=== PATIENT | female | born 1950 | race Asian ===

== ENCOUNTER 2018-09-26 08:58 | Inpatient (IN) | payer OTHER, MEDICAID ==
[~2018-09-26] VITALS: Ht 147.3 cm; Wt 64.0 kg
[2018-09-26 09:13] VITALS: BP_SYST 162
[2018-09-26] MEDS ORDERED: INSULIN REGULAR, HUMAN 10 UNITS/0.1 ML INJ IVP ONE (10:30)
[2018-09-26 11:08] LABS: BILIRUBIN,URINE NEGATIVE (NEGATIVE); CLARITY/URINE CLEAR (CLEAR); COLOR,URINE YELLOW (YELLOW); GLUCOSE,URINE 2+ (NEGATIVE); KETONES,URINE TRACE (NEGATIVE); LEUKOCYTE ESTERASE ,URINE NEGATIVE (NEGATIVE); NITRITE, URINE NEGATIVE (NEGATIVE); PROTEIN URINE 2+ (NEGATIVE); UROBILINOGEN,URINE 0.2 (0.2-1.0)
[2018-09-26 11:09] LABS: BLOOD, URINE TRACE (NEGATIVE)
[2018-09-26 11:09] LABS: BASOPHILS % (AUTO) 0.1 % (0.0-2.0); HEMATOCRIT 40.9 % (36-48); HEMOGLOBIN 13.1 g/dL (12.0-16.0); LYMPHOCYTES # (AUTO) 2.4 K/uL (1.0-5.5); LYMPHOCYTES % (AUTO) 10.6 % (20.5-51.5); MEAN CORPUSCULAR HEMOGLOBIN 29 pg (27-31); MEAN CORPUSCULAR HGB CONC 32 % (32-36); MEAN CORPUSCULAR VOLUME 89 fL (79.0-98.0); MONOCYTES % (AUTO) 4.4 % (1.7-9.3); NEUTROPHILS # (AUTO) 19.1 K/uL (1.8-7.7); NEUTROPHILS % (AUTO) 84.9 % (40.0-70.0); PLATELET COUNT (AUTO) 283 K/uL (130-430); RED BLOOD CELL COUNT(AUTO) 4.59 MIL/uL (4.2-6.2); RED CELL DISTRIBUTION WIDTH 14.3 % (9.0-15.0); WHITE BLOOD COUNT (AUTO) 22.5 K/uL (4.8-10.8)
[2018-09-26 11:11] LABS: CALCIUM 9.2 mg/dL (8.4-11.0); CREATININE 1.11 mg/dL (0.55-1.30); POTASSIUM 3.6 mmol/L (3.5-5.1)
[2018-09-26] MEDS ORDERED: NACL 0.9% 1,000 ML IV ONE ×2 (11:15→14:00)
[2018-09-26 11:17] LABS: ALBUMIN 3.5 g/dL (3.4-4.8); TOTAL BILIRUBIN 0.5 mg/dL (0.0-1.0)
[2018-09-26 11:30] LABS: BACTERIA,URINE FEW /HPF (None Seen); MUCUS,URINE 1+ /LPF (None Seen); WBC,URINE 0-3 /HPF (0-3)
[2018-09-26] MEDS ORDERED: MORPHINE 4 MG/ML INJ. SYRINGE IVP ONE (12:15)
[2018-09-26] MEDS ORDERED: GLUXR500 PO (12:30)
[2018-09-26] MEDS ORDERED: NOR10 PO (12:30)
[2018-09-26] MEDS ORDERED: GLIP5TAB26 PO (12:30)
[2018-09-26] MEDS ORDERED: SIMV10TA2 PO (12:30)
[2018-09-26] MEDS ORDERED: VANCOMYCIN HCL 1,000 MG in NS 250 ML IV ONE (13:15)
[2018-09-26] MEDS ORDERED: VANCOMYCIN HCL 1000 MG/VIAL IV ONE (13:29)
[2018-09-26 14:00] VITALS: BP_SYST 143
[2018-09-26] MEDS ORDERED: DEXTROSE 50% JECT 50 ML DISP.SYRIN IVP PRN (14:00)
[2018-09-26] MEDS: NACL 0.9% 1,000 ML IV SCH ×2 (14:00→21:22)
[2018-09-26] MEDS ORDERED: OSELTAMIVIR PHOSPHATE 75 MG CAPSULE PO ONE (14:00)
[2018-09-26] MEDS ORDERED: CHOLECALCIFEROL (VITAMIN D3) 2,000 UNIT TABLET PO ONE (14:15)
[2018-09-26] MEDS: ACETAMINOPHEN 325 MG TABLET PO PRN (15:02)
[2018-09-26 16:13] VITALS: BP_SYST 148
[2018-09-26] MEDS: INSULIN REGULAR, HUMAN 100 UNITS/ML, 10 ML VIAL (humuLIN R) SUBCUT PRN ×2 (17:18→21:20)
[2018-09-26 21:00] VITALS: BP_SYST 143
[2018-09-26] MEDS: glipiZIDE XL 5 MG TAB ( GLUCOTROL XL) PO SCH (21:05)
[2018-09-26] MEDS: MULTIVITAMINS TAB 1 TABLET PO SCH (21:05)
[2018-09-26] MEDS: OSELTAMIVIR PHOSPHATE 75 MG CAPSULE PO SCH (21:07)
[2018-09-27 00:05] VITALS: BP_SYST 132
[2018-09-27] MEDS: ONDANSETRON HCL 4 MG/2 ML VIAL IVP PRN ×2 (02:27→09:06)
[2018-09-27] MEDS: ACETAMINOPHEN 325 MG TABLET PO PRN ×2 (02:33→09:07)
[2018-09-27] MEDS: NACL 0.9% 1,000 ML IV SCH ×3 (02:35→17:45)
[2018-09-27 06:33] LABS: BASOPHILS # (AUTO) 0.1 K/uL (0.0-0.2); BASOPHILS % (AUTO) 0.3 % (0.0-2.0); EOSINOPHILS % (AUTO) 0.2 % (0.0-4.0); HEMATOCRIT 37.6 % (36-48); HEMOGLOBIN 12.2 g/dL (12.0-16.0); LYMPHOCYTES # (AUTO) 2.9 K/uL (1.0-5.5); MEAN CORPUSCULAR HEMOGLOBIN 29 pg (27-31); MEAN CORPUSCULAR HGB CONC 32 % (32-36); MEAN CORPUSCULAR VOLUME 90 fL (79.0-98.0); MONOCYTES % (AUTO) 4.8 % (1.7-9.3); NEUTROPHILS # (AUTO) 16.5 K/uL (1.8-7.7); PLATELET COUNT (AUTO) 259 K/uL (130-430); WHITE BLOOD COUNT (AUTO) 20.4 K/uL (4.8-10.8)
[2018-09-27 06:51] LABS: CALCIUM 8.4 mg/dL (8.4-11.0); CREATININE 0.82 mg/dL (0.55-1.30); POTASSIUM 3.5 mmol/L (3.5-5.1)
[2018-09-27] MEDS: INSULIN REGULAR, HUMAN 100 UNITS/ML, 10 ML VIAL (humuLIN R) SUBCUT PRN ×4 (06:55→21:37)
[2018-09-27 07:19] LABS: ALBUMIN 2.7 g/dL (3.4-4.8); THYROID STIMULATING HORMONE 10.79 uIu/mL (0.36-3.74); TOTAL BILIRUBIN 0.3 mg/dL (0.0-1.0)
[2018-09-27 07:50] VITALS: BP_SYST 137
[2018-09-27] MEDS: OSELTAMIVIR PHOSPHATE 75 MG CAPSULE PO SCH ×2 (09:06→21:25)
[2018-09-27] MEDS: glipiZIDE XL 5 MG TAB ( GLUCOTROL XL) PO SCH ×2 (09:06→21:26)
[2018-09-27] MEDS: amLODIPine BESYLATE 10 MG TABLET PO SCH (09:07)
[2018-09-27] MEDS: MULTIVITAMINS TAB 1 TABLET PO SCH ×2 (09:08→21:25)
[2018-09-27] MEDS: SIMVASTATIN 10 MG TABLET PO SCH (09:08)
[2018-09-27] MEDS: CHOLECALCIFEROL (VITAMIN D3) 2,000 UNIT TABLET PO SCH (09:08)
[2018-09-27 10:34] LABS: NEUTROPHILS % (AUTO) 80.7 % (40.0-70.0)
[2018-09-27] MEDS: metroNIDAZOLE 250 MG TABLET PO SCH ×3 (12:14→21:26)
[2018-09-27 12:37] VITALS: BP_SYST 111
[2018-09-27 16:52] VITALS: BP_SYST 117
[2018-09-27] MEDS: PANTOPRAZOLE SODIUM 40 MG/VIAL (PROTONIX) IVP SCH (19:30)
[2018-09-27 20:02] VITALS: BP_SYST 138
[2018-09-27] MEDS ORDERED: PANTOPRAZOLE SODIUM 40 MG/VIAL (PROTONIX) IVP SCH (21:00)
[2018-09-27] MEDS: D5LR 1,000 ML IV SCH (21:24)
[2018-09-27] MEDS: DOXYCYCLINE HYCLATE 100 MG CAPSULE PO SCH (21:26)
[2018-09-28] VITALS (7 sets, daily range): BP systolic 114–141
[2018-09-28] MEDS: D5LR 1,000 ML IV SCH ×3 (06:06→23:37)
[2018-09-28] MEDS: INSULIN REGULAR, HUMAN 100 UNITS/ML, 10 ML VIAL (humuLIN R) SUBCUT PRN ×3 (06:11→20:21)
[2018-09-28 06:24] LABS: BASOPHILS # (AUTO) 0.1 K/uL (0.0-0.2); BASOPHILS % (AUTO) 0.4 % (0.0-2.0); EOSINOPHILS # (AUTO) 0.2 K/uL (0.0-0.4); EOSINOPHILS % (AUTO) 1.4 % (0.0-4.0); HEMATOCRIT 35.5 % (36-48); HEMOGLOBIN 11.6 g/dL (12.0-16.0); LYMPHOCYTES # (AUTO) 4.3 K/uL (1.0-5.5); MEAN CORPUSCULAR HEMOGLOBIN 29 pg (27-31); MEAN CORPUSCULAR HGB CONC 33 % (32-36); MONOCYTES % (AUTO) 6.7 % (1.7-9.3); NEUTROPHILS # (AUTO) 9.7 K/uL (1.8-7.7); NEUTROPHILS % (AUTO) 63.5 % (40.0-70.0); PLATELET COUNT (AUTO) 274 K/uL (130-430); RED BLOOD CELL COUNT(AUTO) 4.01 MIL/uL (4.2-6.2); RED CELL DISTRIBUTION WIDTH 13.7 % (9.0-15.0); WHITE BLOOD COUNT (AUTO) 15.3 K/uL (4.8-10.8)
[2018-09-28 07:05] LABS: MEAN CORPUSCULAR VOLUME 88 fL (79.0-98.0)
[2018-09-28 07:26] LABS: CALCIUM 8.3 mg/dL (8.4-11.0); CREATININE 0.86 mg/dL (0.55-1.30); POTASSIUM 3.3 mmol/L (3.5-5.1)
[2018-09-28] MEDS ORDERED: MIDAZOLAM HCL 5 MG/5 ML VIAL ONE (07:35)
[2018-09-28 07:53] LABS: ALBUMIN 2.5 g/dL (3.4-4.8); THYROID STIMULATING HORMONE 15.61 uIu/mL (0.36-3.74); TOTAL BILIRUBIN 0.3 mg/dL (0.0-1.0)
[2018-09-28] MEDS: MEPERIDINE HCL/PF 100 MG/ML AMP ONE ×2 (07:58→09:27)
[2018-09-28] MEDS: MIDAZOLAM HCL 5 MG/5 ML VIAL ONE ×2 (07:58→09:27)
[2018-09-28] MEDS ORDERED: DIATR MEGLU/DIATRIZ SOD 30 ML SOLUTION PO ONE (08:46)
[2018-09-28] MEDS: SIMVASTATIN 10 MG TABLET PO SCH (09:22)
[2018-09-28] MEDS: LEVOTHYROXINE SODIUM 0.025 MG TABLET PO SCH (09:22)
[2018-09-28] MEDS: DOXYCYCLINE HYCLATE 100 MG CAPSULE PO SCH ×2 (09:22→20:20)
[2018-09-28] MEDS: MULTIVITAMINS TAB 1 TABLET PO SCH ×2 (09:22→20:20)
[2018-09-28] MEDS: glipiZIDE XL 5 MG TAB ( GLUCOTROL XL) PO SCH ×2 (09:22→20:21)
[2018-09-28] MEDS: metroNIDAZOLE 250 MG TABLET PO SCH ×3 (09:22→16:25)
[2018-09-28] MEDS: CHOLECALCIFEROL (VITAMIN D3) 2,000 UNIT TABLET PO SCH (09:22)
[2018-09-28] MEDS: PANTOPRAZOLE SODIUM 40 MG/VIAL (PROTONIX) IVP SCH (09:22)
[2018-09-28] MEDS: OSELTAMIVIR PHOSPHATE 75 MG CAPSULE PO SCH ×2 (09:23→20:20)
[2018-09-28] MEDS: amLODIPine BESYLATE 10 MG TABLET PO SCH (09:23)
[2018-09-28] MEDS ORDERED: POTASSIUM CHLORIDE 20 MEQ TAB.PRT.SR PO ONE (12:15)
[2018-09-28] MEDS ORDERED: IOHEXOL 100 ML IV ONE (13:00)
[2018-09-28] MEDS ORDERED: BISACODYL 5 MG TABLET.DR (DULCOLAX) PO ONE (17:00)
[2018-09-28] MEDS ORDERED: GOLYTELY / COLYTE SOLUTION 4 LITERS PO ONE (18:00)
[2018-09-28] MEDS: POTASSIUM CHLORIDE 20 MEQ TAB.PRT.SR PO SCH (20:20)
[2018-09-28] MEDS: metroNIDAZOLE 250 mg/NS 50 ML IV SCH (21:17)
[2018-09-29] MEDS: LEVOTHYROXINE SODIUM 0.025 MG TABLET PO SCH (04:39)
[2018-09-29] MEDS: metroNIDAZOLE 250 mg/NS 50 ML IV SCH ×3 (05:18→21:39)
[2018-09-29 05:44] LABS: BASOPHILS # (AUTO) 0.1 K/uL (0.0-0.2); BASOPHILS % (AUTO) 0.8 % (0.0-2.0); EOSINOPHILS # (AUTO) 0.4 K/uL (0.0-0.4); EOSINOPHILS % (AUTO) 3.3 % (0.0-4.0); HEMOGLOBIN 10.9 g/dL (12.0-16.0); MONOCYTES # (AUTO) 0.9 K/uL (0.0-1.0)
[2018-09-29] MEDS: INSULIN REGULAR, HUMAN 100 UNITS/ML, 10 ML VIAL (humuLIN R) SUBCUT PRN ×2 (05:56→17:02)
[2018-09-29 06:55] LABS: CALCIUM 8.5 mg/dL (8.4-11.0); CREATININE 0.76 mg/dL (0.55-1.30)
[2018-09-29 07:00] LABS: HEMATOCRIT 33.9 % (36-48); LYMPHOCYTES # (AUTO) 3.9 K/uL (1.0-5.5); LYMPHOCYTES % (AUTO) 30.8 % (20.5-51.5); MEAN CORPUSCULAR HEMOGLOBIN 28 pg (27-31); MEAN CORPUSCULAR HGB CONC 32 % (32-36); MEAN CORPUSCULAR VOLUME 88 fL (79.0-98.0); MONOCYTES % (AUTO) 6.7 % (1.7-9.3); NEUTROPHILS # (AUTO) 7.5 K/uL (1.8-7.7); NEUTROPHILS % (AUTO) 58.4 % (40.0-70.0); PLATELET COUNT (AUTO) 292 K/uL (130-430); RED BLOOD CELL COUNT(AUTO) 3.83 MIL/uL (4.2-6.2); RED CELL DISTRIBUTION WIDTH 13.6 % (9.0-15.0); WHITE BLOOD COUNT (AUTO) 12.8 K/uL (4.8-10.8)
[2018-09-29 07:11] LABS: PROTHROMBIN TIME 10.1 SECS (9.5-12.5)
[2018-09-29 07:45] VITALS: BP_SYST 133
[2018-09-29] MEDS: PANTOPRAZOLE SODIUM 40 MG/VIAL (PROTONIX) IVP SCH (08:55)
[2018-09-29] MEDS: POTASSIUM CHLORIDE 20 MEQ TAB.PRT.SR PO SCH ×2 (08:55→21:30)
[2018-09-29] MEDS: CHOLECALCIFEROL (VITAMIN D3) 2,000 UNIT TABLET PO SCH (09:00)
[2018-09-29] MEDS: DOXYCYCLINE HYCLATE 100 MG CAPSULE PO SCH ×2 (09:00→21:29)
[2018-09-29] MEDS: MULTIVITAMINS TAB 1 TABLET PO SCH ×2 (09:00→21:29)
[2018-09-29] MEDS: SIMVASTATIN 10 MG TABLET PO SCH (09:00)
[2018-09-29] MEDS: amLODIPine BESYLATE 10 MG TABLET PO SCH (09:00)
[2018-09-29] MEDS: glipiZIDE XL 5 MG TAB ( GLUCOTROL XL) PO SCH ×2 (09:00→21:29)
[2018-09-29] MEDS: OSELTAMIVIR PHOSPHATE 75 MG CAPSULE PO SCH ×2 (09:00→21:29)
[2018-09-29] MEDS ORDERED: POTASSIUM CHLORIDE 20 MEQ TAB.PRT.SR PO ONE (10:30)
[2018-09-29] MEDS: MEPERIDINE HCL/PF 100 MG/ML AMP ONE ×4 (10:58→13:50)
[2018-09-29] MEDS ORDERED: SIMETHICONE 40 MG/0.6 ML ML ONE (10:58)
[2018-09-29] MEDS: MIDAZOLAM HCL 5 MG/5 ML VIAL ONE ×4 (10:59→13:50)
[2018-09-29] MEDS: D5LR 1,000 ML IV SCH (11:05)
[2018-09-29 12:08] VITALS: BP_SYST 132
[2018-09-29 16:59] VITALS: BP_SYST 125
[2018-09-29 20:12] VITALS: BP_SYST 134
[2018-09-30 05:05] VITALS: BP_SYST 139
[2018-09-30] MEDS: metroNIDAZOLE 250 mg/NS 50 ML IV SCH (05:21)
[2018-09-30 05:53] LABS: BASOPHILS # (AUTO) 0.1 K/uL (0.0-0.2); BASOPHILS % (AUTO) 0.9 % (0.0-2.0); EOSINOPHILS # (AUTO) 0.5 K/uL (0.0-0.4); EOSINOPHILS % (AUTO) 3.3 % (0.0-4.0); HEMATOCRIT 34.3 % (36-48); HEMOGLOBIN 11.1 g/dL (12.0-16.0); LYMPHOCYTES # (AUTO) 4.7 K/uL (1.0-5.5); LYMPHOCYTES % (AUTO) 30.4 % (20.5-51.5); MEAN CORPUSCULAR HEMOGLOBIN 29 pg (27-31); MEAN CORPUSCULAR HGB CONC 32 % (32-36); MEAN CORPUSCULAR VOLUME 88 fL (79.0-98.0); MONOCYTES # (AUTO) 0.9 K/uL (0.0-1.0); MONOCYTES % (AUTO) 5.6 % (1.7-9.3); NEUTROPHILS # (AUTO) 9.2 K/uL (1.8-7.7); NEUTROPHILS % (AUTO) 59.8 % (40.0-70.0); PLATELET COUNT (AUTO) 309 K/uL (130-430); RED CELL DISTRIBUTION WIDTH 13.8 % (9.0-15.0); WHITE BLOOD COUNT (AUTO) 15.4 K/uL (4.8-10.8)
[2018-09-30] MEDS: LEVOTHYROXINE SODIUM 0.025 MG TABLET PO SCH (06:30)
[2018-09-30] MEDS: D5LR 1,000 ML IV SCH ×2 (06:31→11:06)
[2018-09-30 06:37] LABS: CALCIUM 8.8 mg/dL (8.4-11.0); CREATININE 0.77 mg/dL (0.55-1.30); POTASSIUM 3.7 mmol/L (3.5-5.1)
[2018-09-30 08:00] VITALS: BP_SYST 136
[2018-09-30] MEDS: SIMVASTATIN 10 MG TABLET PO SCH (08:45)
[2018-09-30] MEDS: OSELTAMIVIR PHOSPHATE 75 MG CAPSULE PO SCH (08:45)
[2018-09-30] MEDS: MULTIVITAMINS TAB 1 TABLET PO SCH (08:45)
[2018-09-30] MEDS: POTASSIUM CHLORIDE 20 MEQ TAB.PRT.SR PO SCH (08:45)
[2018-09-30] MEDS: CHOLECALCIFEROL (VITAMIN D3) 2,000 UNIT TABLET PO SCH (08:45)
[2018-09-30] MEDS: glipiZIDE XL 5 MG TAB ( GLUCOTROL XL) PO SCH (08:45)
[2018-09-30] MEDS: PANTOPRAZOLE SODIUM 40 MG/VIAL (PROTONIX) IVP SCH (08:47)
[2018-09-30] MEDS: amLODIPine BESYLATE 10 MG TABLET PO SCH (08:47)
[2018-09-30] MEDS: DOXYCYCLINE HYCLATE 100 MG CAPSULE PO SCH (08:50)
[2018-09-30] MEDS: INSULIN REGULAR, HUMAN 100 UNITS/ML, 10 ML VIAL (humuLIN R) SUBCUT PRN (11:22)
[2018-09-30] MEDS ORDERED: SUCR1TAB78 PO (12:34)
[2018-09-30] MEDS ORDERED: DOXY100T2 PO (12:35)
[2018-09-30] MEDS ORDERED: DOCU-144 PO (12:35)
[2018-09-30] MEDS ORDERED: PRO40 PO (12:36)
[2018-09-30 13:47] VITALS: BP_SYST 147
[2018-09-30 13:51] VITALS: BP_SYST 147
[2018-10-09 14:38] LABS: CEA 4.2 ng/ml (0.0-4.7)
== END 2018-09-30 14:25 | disposition home health service (06) | DRG 872 ==
LOC: SED 08:58 → SMU 13:01 → STU 14:22 → SMU 09-27 19:16
PROVIDERS: ADMIT Internal Medicine; ATTEND Internal Medicine
PROC: 0DB68ZX Excision of Stomach, Via Natural or Artificial Opening Endoscopic, Diagnostic (ICD-10-PCS; 2018-09-28)
PROC: 0DB98ZX Excision of Duodenum, Via Natural or Artificial Opening Endoscopic, Diagnostic (ICD-10-PCS; principal; 2018-09-28 08:00)
PROC: 0DBP8ZZ Excision of Rectum, Via Natural or Artificial Opening Endoscopic (ICD-10-PCS; 2018-09-29)
DX: A41.9 Sepsis, unspecified organism (principal); Q43.8 Other specified congenital malformations of intestine; N39.0 Urinary tract infection, site not specified; K26.9 Duodenal ulcer, unspecified as acute or chronic, without hemorrhage or perforation; K52.9 Noninfective gastroenteritis and colitis, unspecified; E11.65 Type 2 diabetes mellitus with hyperglycemia; E78.5 Hyperlipidemia, unspecified; I10 Essential (primary) hypertension; K29.00 Acute gastritis without bleeding; E03.9 Hypothyroidism, unspecified; E87.6 Hypokalemia; K44.9 Diaphragmatic hernia without obstruction or gangrene; K62.1 Rectal polyp; K64.8 Other hemorrhoids; K86.9 Disease of pancreas, unspecified; Z79.899 Other long term (current) drug therapy; Z79.84 Long term (current) use of oral hypoglycemic drugs
CPT/HCPCS: 36415; 43239; 45380; 71045; 71270-TC; 76700-TC; 80048; 80053; 81000-TC; 82150-TC; 82378; 82962; 83605; 83690-TC; 83735-TC; 84439; 84443-TC; 85025; 85610-TC; 85730-TC; 86301; 86710; 87040-TC; 87045-TC; 87046; 87081; 87177; 88305; 88312; 88313; 89055; 96361; 96365; 96366; 96375; 99285; C9113; G0378; G9035; J1815; J1956; J2175; J2250; J2270; J2405; J3370; J3490; J7030; J7120; Q9964; Q9967